=== PATIENT | female | born 1965 | race American Indian/Alaskan Native ===

== ENCOUNTER 2021-07-03 09:10 | Day surgery (SDC) | payer MEDICARE ==
[~2021-07-03 09:10] MED LIST: IOHEXOL 300 MG/ML 50ML IV ONE; WATER FOR IRRIG STERILE 1,500 ML BOTTLE IR ONE; WATER FOR IRRIG STERILE 2000 ML IR ONE
--- NOTE | 2021-07-03 10:36 | Anesthesia Day of Surgery ---
Anesthesia Day of Surgery - Day of Surgery Patient Examined: Yes Patient H&P Reviewed: Yes Patient is NPO: Yes
--- NOTE | 2021-07-03 10:40 | Anesthesia Consultation ---
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
[2021-07-03] MEDS ORDERED: LACTATED RINGERS 1,000 ML IV SCH (11:00)
[2021-07-03] MEDS ORDERED: SCOPOLAMINE TRANSDERMAL PATCH 72 HR TD NR (11:00)
[2021-07-03] MEDS ORDERED: ceFAZolin/Water 2 GM/20 ML 2 GM/20 ML SYRINGE IV NR (11:00)
[2021-07-03] MEDS ORDERED: MIDAZOLAM 2 MG/2 ML INJ IV NR (11:00)
[2021-07-03] MEDS ORDERED: HYDROmorphone 1 MG/1 ML INJ IV PRN ×2 (11:00)
[2021-07-03] MEDS ORDERED: ceFAZolin/Water 2 GM/20 ML 2 GM/20 ML SYRINGE IV ONE (11:00)
[2021-07-03] MEDS ORDERED: ONDANSETRON 4 MG/2 ML INJ IV PRN (11:00)
[2021-07-03] MEDS ORDERED: LIDOCAINE PF 100 MG/5 ML (CARDIAC SYRINGE) IV ONE (11:03)
[2021-07-03] MEDS ORDERED: propofoL 200 MG/20 ML VIAL IV ONE (11:03)
[2021-07-03] MEDS ORDERED: WATER FOR IRRIG STERILE 1,500 ML BOTTLE IR ONE (11:20)
[2021-07-03] MEDS ORDERED: WATER FOR IRRIG STERILE 2000 ML IR ONE (11:20)
[2021-07-03] MEDS ORDERED: IOHEXOL 300 MG/ML 50ML IV ONE (11:20)
[2021-07-03] MEDS ORDERED: ONDANSETRON 4 MG/2 ML INJ ONE (11:23)
[2021-07-03] MEDS ORDERED: dexAMETHasone 20 MG/5 ML VIAL ONE (11:23)
[2021-07-03] MEDS ORDERED: KETOROLAC 30 MG/1 ML INJ ONE (11:30)
--- NOTE | 2021-07-03 11:42 | Operative Report ---
DATE OF SURGERY: 07/03/2021 PREOPERATIVE DIAGNOSES: Interstitial cystitis, hematuria. POSTOPERATIVE DIAGNOSES: Interstitial cystitis, hematuria. No bladder lesions, very small capacity bladder. PROCEDURES: Cystoscopy, hydrodistention, retrograde. SURGEON: Hima Toribio MD. ANESTHESIA: General. FINDINGS: This is a woman with hematuria. She now presents for cystoscopy and evaluation. DESCRIPTION OF PROCEDURE: The patient was brought to the operating room and placed on the operating table. Following induction of anesthesia, placed in lithotomy position, prepped and draped in usual sterile fashion. Cystourethroscopy showed no lesions. The capacity was severely diminished. We did multiple hydrodistentions, barely got it up to 300 mL. There were some glomerulations, but no Hunner's ulcers. Retrograde showed some air bubbles at the UPJ, which drained freely. The patient tolerated the procedure well and brought to recovery in stable condition. No significant bleeding. No complication. TID: [id number] RECEIPT: [id number] SHEY/CHRISTINA
--- NOTE | 2021-07-03 12:29 | Fluoroscopy Report ---
FL retrograde urography Technique: Intraoperative fluoroscopic guidance was provided. Fluoroscopy time: 12 seconds. Fluoroscopy images: 6. Findings/Impression: Intraoperative fluoroscopic guidance for bilateral retrograde pyelography. Ciaran mirza see procedure report for further details. Signer Name: Haider Abraham MD Signed: 07/03/2021 12:25 PM Workstation Name: [id number]
--- NOTE | 2021-07-03 14:50 | Post Operative Note ---
Pre-op diagnosis: ic Post-op diagnosis: same Findings: small bladder Procedure: cysto hydro rpgs Anesthesia: GETA Surgeon: GÓMEZ MI Estimated blood loss: none Pathology: none Condition: stable Disposition: PACU
--- NOTE | 2021-07-03 14:51 | Discharge Summary ---
Short Stay Discharge Plan Activity: other (no straining ) Weight Bearing Status: Full Weight Bearing Diet: low fat, low cholesterol, low salt Special Instructions: other Durable Medical Equipment Needed Upon Discharge: other Additional Instructions: AVOID STRAINING. INCREASE ORAL FLUIDS. CALL FOR F/U APPT. REMOVE SCOPOLAMINE PATCH BEHIND LEFT EAR IN 24-72 HOURS-USE GLOVES AND WASH HANDS. Follow up with: THU RINALDI MD [Primary Care Provider] - 7 Days GÓMEZ MI MD [Staff Physician] - 7 Days Forms: Outpatient Surgery DC Inst.
--- NOTE | 2021-07-03 16:34 | Post Anesthesia Evaluation ---
- Post Anesthesia Evaluation Patient Participated: Yes Airway Patent: Yes Stable Respiratory Function: Yes Nausea/Vomiting: No Temp > 96.8F: Yes Pain Manageable: Yes Adequeate Hydration: Yes Anesthesia Complications: No Block Receding Appropriately: Not Applicable Patient on Ventilator: No
[2021-07-03 19:09] VITALS: BP 135/79
== END 2021-07-03 15:05 | disposition home or self-care (01) ==
LOC: OR 09:10
PROVIDERS: ATTEND Urology
DX: N30.11 Interstitial cystitis (chronic) with hematuria (principal); R31.9 Hematuria, unspecified; I10 Essential (primary) hypertension; E03.9 Hypothyroidism, unspecified; K21.9 Gastro-esophageal reflux disease without esophagitis; F32.9 Major depressive disorder, single episode, unspecified; Z90.49 Acquired absence of other specified parts of digestive tract; Z90.710 Acquired absence of both cervix and uterus; Z98.890 Other specified postprocedural states; Z88.2 Allergy status to sulfonamides; Z88.8 Allergy status to other drugs, medicaments and biological substances; Z79.899 Other long term (current) drug therapy
CPT/HCPCS: 52260; 74420; A4217; J0690; J1100; J1170; J2001; J2250; J2405; J2704; J7120; Q9967; J1885